=== PATIENT | female | born 1965 | race Caucasian/White ===

== ENCOUNTER → 2016-11-03 | Outpatient (CLI) | payer BC | END | disposition home or self-care (01) | LOC: MW.CHGS 15:32 | PROVIDERS: ATTEND Surgery | DX: N63 Unspecified lump in breast (principal) | CPT/HCPCS: 36415; 85025; 85730 ==

== ENCOUNTER → 2016-11-11 | Outpatient (CLI) | payer BC ==
--- NOTE | 2016-11-11 14:30 | US ---
EXAMINATION: Ultrasound guided left breast biopsy HISTORY: Lump COMPARISON: 03/20/2016 TECHNIQUE: The procedure, risks, and benefits were discussed with the patient. Informed consent was obtained. The small mass was identified at the approximate 2 to 3:00 position. The overlying area wa s sterilely prepped and draped. 1% lidocaine was administered for local anesthesia. Using ultrasound guidance a total of 4 14-gauge core biopsies were obtained. A clip was placed at the biopsy site. P valente tolerated the procedure well. IMPRESSION: Successful ultrasound-guided left breast biopsy.
== END ==
LOC: MW.US 10:33
PROVIDERS: ATTEND Surgery
DX: N63 Unspecified lump in breast (principal)
CPT/HCPCS: 19083-LT; 19286-LT; 88305

== ENCOUNTER 2017-03-20 06:43 | Day surgery (SDC) | payer BC ==
[2017-03-20] MEDS ORDERED: Dexamethasone/Tobramycin 0.1-0.3% Ophth Oint 3.5 GM Tube ONE (07:18)
[2017-03-20] MEDS ORDERED: Bupivacaine 25%/EPINEPHrine/PF 30 ML ONE (07:18)
[2017-03-20] MEDS ORDERED: Octyl 2-Cyanoacrylate 1 Tube ONE (07:18)
[2017-03-20] MEDS ORDERED: Midazolam 1 MG/ML 2 ML SDV ONE (07:31)
[2017-03-20] MEDS ORDERED: Propofol 200 MG/20 ML SDV ONE (07:31)
[2017-03-20] MEDS ORDERED: fentaNYL 100 MCG/2 ML SDV ONE (07:31)
[2017-03-20] MEDS ORDERED: Lidocaine 2% 5 ML SDV ONE (07:31)
--- NOTE | 2017-03-20 07:34 | PCM.PREANE ---
Preanesthetic Assessment - Anesthesia/Transfusion/Family Hx Anesthesia History: Prior Anesthesia Without Reaction Family History of Anesthesia Reaction: No Transfusion History: No Prior Transfusion(s) Intubation History: Unknown - Review of Systems General: No Symptoms Pulmonary: No Symptoms Cardiovascular: No Symptoms Gastrointestinal: No Symptoms Neurological: No Symptoms Other: Reports: None - Physical Assessment O2 Sat by Pulse Oximetry: 98 Respiratory Rate: 16 Vital Signs: Last Vital Signs Temp 37.4 C 03/20/17 07:24 Pulse 75 03/20/17 07:24 Resp 16 03/20/17 07:24 BP 120/65 03/20/17 07:24 Pulse Ox 98 03/20/17 07:24 Height: 1.6 m Weight: 66.224 kg ASA Class: 1 Mental Status: Alert & Oriented x3 Airway Class: Mallampati = 2 Dentition: Reports: Normal Dentition Thyro-Mental Finger Breadths: 2 Mouth Opening Finger Breadths: 3 ROM/Head Extension: Full Lungs: Clear to Auscultation, Normal Respiratory Effort Cardiovascular: Regular Rate, Regular Rhythm - Allergies Allergies/Adverse Reactions: Allergies Allergy/AdvReac Type Severity Reaction Status Date / Time No Known Allergies Allergy Verified 01/07/17 15:08 - Blood Blood Available: No - Anesthesia Plan Pre-Op Medication Ordered: None - Acknowledgements Anesthesia Type Planned: MAC Pt an Appropriate Candidate for the Planned Anesthesia: Yes Alternatives and Risks of Anesthesia Discussed w Pt/Guardian: Yes Pt/Guardian Understands and Agrees with Anesthesia Plan: Yes PreAnesthesia Questionnaire HEENT History: Reports: Other (See Below) Other HEENT History: wears glasses Gastrointestinal History: Reports: None Genitourinary History: Reports: None 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: - Past Surgical History Head Surgeries/Procedures: Reports: None HEENT Surgical History: Reports: Tonsillectomy GI Surgical History: Reports: Appendectomy Female Surgical History: Reports: Breast Biopsy, Hysterectomy, Oophorectomy, Tubal Ligation - SUBSTANCE USE Smoking Status *Q: Never Smoker Recreational Drug Use History: No - HOME MEDS Home Medications: Home Meds Estrogens, Conjugated [Premarin] 0.45 mg PO DAILY 01/07/17 [History] - CURRENT (IN HOUSE) MEDS Current Meds: Current Medications Hydrocodone Bitart/Acetaminophen ([place] 325-5 Mg) 1 tab PO Q4H PRN PRN Reason: Pain Bupivacaine HCl/Epinephrine Bitart (Marcaine 0.25%/Epinephrine 1:200,000) 10 ml INJECT ONETIME ONE Stop: 03/20/17 08:01 Cefazolin Sodium/Dextrose 2 gm (/ Premix) 50 mls @ 100 mls/hr IV ONETIME ONE Stop: 03/20/17 08:29 Lactated Ringer's (Ringers, Lactated) 1,000 mls @ 125 mls/hr IV ASDIRECTED FLORENCIA Last Admin: 03/20/17 07:27 Dose: 125 mls/hr Tobramycin/Dexamethasone (Tobradex Ophth Oint) 2 gm EYEBOTH ONETIME ONE Stop: 03/20/17 08:01 Discontinued Medications Bupivacaine HCl/Epinephrine Bitart (Sensorc Mpf 0.25%-Epi 1:[id number]) Confirm Administered Dose 30 mls @ as directed .ROUTE .STK-MED ONE Stop: 03/20/17 07:19 Octyl Cyanoacrylate (Dermabond Advance) Confirm Administered Dose 1 applic .ROUTE .STK-MED ONE Stop: 03/20/17 07:19 Tobramycin/Dexamethasone (Tobradex Ophth Oint) Confirm Administered Dose 3.5 gm .ROUTE .STK-MED ONE Stop: 03/20/17 07:19
[2017-03-20] MEDS ORDERED: Acetaminophen/HYDROcodone 325-5 MG Tab PO PRN (08:00)
[2017-03-20] MEDS ORDERED: Dexamethasone/Tobramycin 0.1-0.3% Ophth Oint 3.5 GM Tube EYEBOTH ONE (08:00)
[2017-03-20] MEDS ORDERED: Lactated Ringers 1,000 ML IV SCH (08:00)
[2017-03-20] MEDS ORDERED: Bupivacaine 0.25%/EPINEPHrine 1:200,000 10 ML SDV INJECT ONE (08:00)
[2017-03-20] MEDS ORDERED: ceFAZolin 2 GM in Premix Bag 1 BAG IV ONE (08:00)
--- NOTE | 2017-03-20 10:36 | PCM48HPAN ---
Post Anesthesia Note - EVALUATION WITHIN 48HRS OF ANESTHETIC Vital Signs in Normal Range: Yes Patient Participated in Evaluation: Yes Respiratory Function Stable: Yes Airway Patent: Yes Cardiovascular Function Stable: Yes Hydration Status Stable: Yes Pain Control Satisfactory: Yes Nausea and Vomiting Control Satisfactory: Yes Mental Status Recovered: Yes - COMMENTS/OBSERVATIONS Free Text/Narrative:: no anesthesia problems, patient skipped recovery room postoperative care.
--- NOTE | 2017-03-20 12:27 | PCM.OPNOTE ---
- General Post-Op/Procedure Note Date of Surgery/Procedure: 03/20/17 Operative Procedure(s): bilateral upper lid blepharoplasty for excess skin wiehgin down lid Pre Op Diagnosis: bilateral upper lid dermatochalasis Post-Op Diagnosis: Same Anesthesia Technique: Local, MAC Primary Surgeon: Chiquita Pathak Inspector Circuitry Negative: Mecca Olivares Complications: None Condition: Good Free Text/Narrative:: [id number]
[2017-03-20 13:21] VITALS: BP 89/55
--- NOTE | 2017-03-20 18:32 | OR ---
SURGEON: KISHORE LARSON MD DATE OF PROCEDURE: 03/20/2017 PROCEDURE: Bilateral upper lid blepharoplasty for excess skin weighing down lids. PREOPERATIVE DIAGNOSIS: Bilateral upper lid dermatochalasis. POSTOPERATIVE DIAGNOSIS: Bilateral upper lid dermatochalasis. ANESTHESIA: Local MAC. PROTOTYPE CARPENTER: JULIANA Mejia INDICATIONS: Ms. Lee is a 51-year-old female seen today in evaluation for bilateral upper lid dermatochalasis. Risks and benefits of upper lid blepharoplasty for excess skin removal to improve her visual greenfield were discussed with her and she was in agreement to proceed. Risks were including, but not limited to, bleeding, infection, damage to underlying or overlying structures, possible need for future interventions and possible scarring. PROCEDURE IN DETAIL: After informed consent was obtained and placed on the chart, the patient was brought to the operating theater and laid in supine position. After adequate local MAC anesthetic was obtained, the area was prepped and draped and a time- out was completed to confirm side and site. Once adequately confirmed, attention was then paid marking of the upper eye lids. Caliper was used and approximately 1 cm excision was planned. Once this was marked, the area was then anesthetized with 0.25% Marcaine with epinephrine in a field block. Once adequately anesthetized, attention was then paid to dissection using a 15 blade to cut through the markings in the standard upper eyelid incision fashion. Dissection was carried to remove the eyelid skin and the underlying muscle was meticulously hemostased using Bovie electrocautery. Once bleeding was adequately controlled, the wounds were closed using deep 4-0 Monocryl stitch and a running 6-0 subcuticular Prolene for the skin. These were Steri-Stripped in place. The wound was dressed with TobraDex. The patient tolerated this well, both eyelids in mirror fashion and all counts of needles were correct at the end the case. FOLLOWUP INSTRUCTIONS: The patient will see us in clinic in approximately 1 week, sooner if any problems, questions, or concerns. ARUNA / KOFFI /[id number]
== END 2017-03-20 10:30 | disposition home or self-care (01) ==
LOC: MW.SDS 06:43
PROVIDERS: ATTEND Plastic Surgery
DX: H02.834 Dermatochalasis of left upper eyelid (principal); H02.831 Dermatochalasis of right upper eyelid; Z90.49 Acquired absence of other specified parts of digestive tract; Z90.710 Acquired absence of both cervix and uterus; Z98.51 Tubal ligation status; Z79.899 Other long term (current) drug therapy
CPT/HCPCS: 15823; A9270; J2250; J3010; J7120; 00103; J2704

== ENCOUNTER 2022-10-21 10:23 | Day surgery (SDC) | payer BC ==
[~2022-10-21 10:23] MED LIST: Lactated Ringers 1,000 ML IV SCH; Propofol 200 MG/20 ML SDV ONE; Sodium Chloride 0.9% 10 ML Syringe FLUSH PRN; Sodium Chloride 0.9% 2.5 ML Syringe FLUSH PRN; Sodium Chloride 0.9% 20 ML SDV IV PRN
[2022-10-21] MEDS ORDERED: Lidocaine 2% 5 ML SDV ONE (10:37)
[2022-10-21] MEDS ORDERED: fentaNYL 100 MCG/2 ML SDV ONE (10:37)
[2022-10-21 12:58] VITALS: BP 103/66; PULSE 62
== END 2022-10-21 12:32 | disposition home or self-care (01) ==
LOC: MW.SDS 10:23
PROVIDERS: ATTEND Surgery
DX: Z12.11 Encounter for screening for malignant neoplasm of colon (principal); Z86.010 Personal history of colon polyps; Z80.0 Family history of malignant neoplasm of digestive organs
CPT/HCPCS: 45378; J2704; J3010; J7120; 00812; J3490